=== PATIENT | male | born 1985 | race Caucasian/White ===

== ENCOUNTER 2019-09-15 14:55 | Emergency (ER) | payer OTHER, SELFPAY ==
[2019-09-15 15:02] VITALS: BP 122/79; PULSE 83; RESP 16; TEMP 37.3; O2SAT 100
--- NOTE | 2019-09-15 15:31 | ED.URI ---
HPI - URI/Sore Throat General Chief Complaint: Upper Respiratory Infection Stated Complaint: COLD Time Seen by Provider: 09/15/19 15:31 Source: patient and RN notes reviewed Mode of arrival: ambulatory Limitations: no limitations History of Present Illness HPI Narrative: Pt is a 33 y/o male who is a nonsmoker/nondrinker that presents to the with c/o fatigue since Thursday (2 days ago). He reports a fever of 102.1F yesterday and myalgia today. Pt states he had diarrhea today and rhinorrhea. He denies sore throat or N/V. Pt states that he is feeling better, but he needs a work note since he has been off for 3 days. MD elicited complaint: other (fatigue) Onset (ago): day(s) (2) Consistency: now resolved Able to tolerate fluids by mouth: Yes Exacerbating factors: nothing Relieving factors: nothing Associated symptoms: fever, myalgias, rhinorrhea and diarrhea Related Data Home Medications Medication Instructions Recorded Confirmed dextroamphetamine-amphetamine 15 mg PO DAILY 08/22/19 08/22/19 [Adderall XR] Allergies Allergy/AdvReac Type Severity Reaction Status Date / Time No Known Drug Allergies Allergy Unknown none Verified 09/15/19 15:01 Review of Systems Review of Systems: Narrative: General/Constitutional: No weight loss,fever. Reports fatigue, fever 102.1F, myalgia Eyes: N0: Redness,discharge Ears/Nose/Throat: No: Epistaxis,ear discharge, sore throat. Reports rhinorrhea Respiratory: Denies: Hemoptysis Gastrointestinal: No Nausea, Vomiting, Bleeding-rectal. Reports diarrhea Skin: No Lumps, eruption Neurologic: No Focal Weakness,Sz Hematologic: Denies: Petechiae/Purpura Psychiatric: No: Suicidal ideation All Other Systems: Reviewed and Negative [facility], [facility] Past Medical History Medical History (Updated 09/15/19 @ 15:46 by Harmony Pollock) Asthma Kidney stones Surgical History Surgical History (Updated 09/15/19 @ 15:47 by Harmony Pollock) No significant past surgical history Social History Social History (Updated 09/15/19 @ 15:48 by Harmony Pollock) Smoking status: Never smoker Alcohol intake: never Comments At time of signature, agree with nursing past medical, surgical, social and family history. There is no relevant family history pertinent to the presenting complaint Exam Narrative: Exam Narrative: General Appearance: Well appearing, Well nourished EYE: PERRLA, Conjunctiva clear Ears: Auditory canal normal, TM normal Nose: no Rhinorrhea, no Mucousal erythema Mouth/Throat: MM moist, Uvula midline, no Pharyngeal erythema Neck: Supple, No adenopathy Respiratory: No respiratory distress, Breath sounds equal, Clear to auscultation Cardiovascular: RRR, No JVD Musculoskeletal: Non tender, Normal strength Skin: Warm, Dry Neurological: A&O x3, CN II-XII intact Psychiatric: Normal mood, Normal affect Course Vital Signs Vital signs: Vital Signs Temperature 99.2 F 09/15/19 15:02 Pulse Rate 83 09/15/19 15:02 Respiratory Rate 16 09/15/19 15:02 Blood Pressure 122/79 09/15/19 15:02 Pulse Oximetry 100 09/15/19 15:02 Temperature 99.2 F 09/15/19 15:02 Pulse Rate 83 09/15/19 15:02 Respiratory Rate 16 09/15/19 15:02 Blood Pressure 122/79 09/15/19 15:02 Pulse Oximetry 100 09/15/19 15:02 Discharge Plan Discharge Clinical Impression: Febrile illness, acute Patient Disposition: Home, Self-Care Condition: Stable Prescriptions: No Action dextroamphetamine-amphetamine [Adderall XR] 15 mg Capsule,Extended Release 24hr 15 mg PO DAILY RF: 0 Interventions: Discharge Disposition Last Done: 09/15/19 15:49 Follow-up/Referrals: Bhargav,MD Arjun [Primary Care Provider] - Stand Alone Forms: Work/School Release IP Discharge Date/Time: 09/15/19 15:46
== END 2019-09-15 15:46 | disposition home or self-care (01) ==
PROVIDERS: Emergency Provider Emergency Medicine; PCP Internal Medicine
DX: R50.9 Fever, unspecified (principal)
CPT/HCPCS: 99211; G0463